=== PATIENT | male | born 1970 | race Caucasian/White ===

== ENCOUNTER → 2016-09-26 | Outpatient (CLI) | payer MEDICAID ==
[~2016-09-26] MED LIST: ALBUTEROL17 GM INH; ALDACTONE PO; ALLERGY RELIEF10 M6 PO; AMOXICILLIN875 MG PO; ANEXSIA 5/325 M1 TA1 PO; ASPIRIN PO; ASPIRIN81 MG PO; ATARAX PO; ATROVENT HFA12.9 G1 INH; AURALGAN AS; BACITRACIN15 GM OINT EXT; BACITRACIN15 GM TP; CHANTIX PO; CHANTIX0.5 MG PO; CLARITIN10 M3 PO; DOXYCYCLINE HY100 M3 PO; EFFIENT10 MG PO; FLEXERIL PO; FLEXERIL10 M1 PO; FUROSEMIDE40 MG PO; IBUPROFEN800 MG PO; INDOMETHACIN50 MG PO; K-DUR20 ME1 PO; KETOPROFEN PO; LEVAQUIN750 MG PO; LIPITOR40 MG PO; LIPITOR80 MG PO; LISINOPRIL PO; LOPRESSOR PO; METOPROLOL TAR25 MG PO; METOPROLOL/HCTZ PO; MEVACOR PO; NAPROXEN PO; NICOTINE TRANSD21 MG EXT; NO MEDICATIONS; PLAVIX PO; POTASSIUM CHLO10 MEQ PO; PREDNISONE PO; PRILOSEC PO; PRILOSEC20 M1; PRILOSEC20 MG PO; PRILOSEC40 MG PO; PRINIVIL5 MG PO; ROBAXIN 750750 M1 PO; TYLENOL #3 PO; VITAMIN B12 PO; VOLTAREN75 MG PO; ZANTAC PO; ZESTRIL10 M1 PO; ZESTRIL10 MG PO; ZITHROMAX PO; ZOCOR PO; ZOLOFT50 MG PO
--- NOTE | ~2016-09-26 | US37 ---
[facility] A Service of [facility] & [facility] RADIOLOGY TEXT RESULTS PATIENT: SYL ZARCO LOCATION: CNIV : 70 UNIT #: [id number] AGE: [address]: Amanda Zaman MD SEX: M ORDER DR: [id number] [facility] [address] [place], [place] [address] [id number] O MR#: [id number] Acc #: [id number] NAME: SYL ZARCO : 1970 SEX: M STUDY DATE/TIME: 09/26/2016 13:57 UNIT: CNIV ROOM: STUDY DESCRIPTION: US Carotid W/Doppler Bilateral Attending Physician: Amanda Zaman M.D. Referring Physician: Amanda Zaman M.D. Ordering Physician: Amanda Zaman M.D. [facility] REPORT This report is preliminary unless electronic signature is present DATE OF EXAM 09/26/2016 REASON FOR EXAM Carotid bruit. EXAM Bilateral carotid Doppler. FINDINGS The right common carotid, internal carotid and external carotid arteries are patent. There is minimal plaque noted in the carotid bulb extending to the proximal internal carotid artery. Velocity of the common carotid artery is 65 cm/sec. Peak systolic velocity of the right proximal internal carotid artery is 62 cm/sec with an end diastolic velocity of 26 cm/sec for an ICA:CCA ratio of 0.95. External carotid artery with a velocity of 167 cm/sec. The vertebral artery is visualized with antegrade flow. The left common carotid, internal carotid and external carotid arteries are patent with mild plaque noted in the carotid bulb extending to the proximal internal carotid artery. Velocity of the common carotid artery is 86 cm/sec. Peak systolic velocity of the left proximal internal carotid artery is 61 cm/sec with an end-diastolic velocity of 24 cm/sec for an ICA:CCA ratio of 0.71. External carotid artery with a velocity of 110 cm/sec. The vertebral artery is visualized with antegrade flow. IMPRESSION 1. Minimal plaque with less than 50% stenosis of the right and left internal carotid arteries. 2. Elevated velocities consistent with stenosis of the right external carotid artery, but no significant stenosis of the left external STS. [facility] A Service of [facility] & [facility] RADIOLOGY TEXT RESULTS PATIENT: SYL ZARCO LOCATION: [facility] #: [id number] : [birth year] UNIT #: [id number] AGE: [address]: Amanda Zaman MD SEX: M ORDER DR: carotid artery. 3. Antegrade flow of the vertebral arteries. Dictated by... Maico Jimenez M.D. THIS IS AN ELECTRONICALLY VERIFIED REPORT Maico Jimenez M.D. at 09/27/2016 10:42 PM JOSEMANUEL/ej TD: 09/26/2016 21:49 JOB #: [id number] MEDICAL IMAGING REPORT COPY
== END | disposition home or self-care (01) ==
LOC: CNIV 13:33
DX: R09.89 Other specified symptoms and signs involving the circulatory and respiratory systems (principal); I65.23 Occlusion and stenosis of bilateral carotid arteries
CPT/HCPCS: 93880

== ENCOUNTER 2016-10-10 20:34 | Emergency (ER) | payer MEDICAID ==
--- NOTE | ~2016-10-10 | CR63 ---
[facility] A Service of [facility] & [facility] RADIOLOGY TEXT RESULTS PATIENT: SYL ZARCO LOCATION: SED : 70 UNIT #: [id number] AGE: [address]: Clif Schwab SEX: M ORDER DR: [id number] [address] [address] [id number] E MR#: [id number] Acc #: [id number] NAME: SYL ZARCO : 1970 SEX: M STUDY DATE/TIME: 10/10/2016 20:47 UNIT: SED ROOM: STUDY DESCRIPTION: CR Chest 2 View Attending Physician: Clif Schwab P.A.-C. Ordering Physician: Clif Schwab P.A.-C. Primary Care Physician: [facility]. MEDICAL IMAGING REPORT This report is preliminary unless electronic signature is present. EXAM Two-view chest. HISTORY Cough for [id number]-[id number] weeks. Longstanding smoker. COMPARISON 01/07/2016 FINDINGS 2 views of the chest demonstrate mild pulmonary hyperinflation and hyperlucency suggesting emphysema. No acute airspace disease or consolidation. No infiltrates. No mass lesions. Heart, mediastinum, bony thorax unremarkable. IMPRESSION No active disease. Dictated by... Lee Flores M.D. THIS IS AN ELECTRONICALLY VERIFIED REPORT Lee Flores M.D. at 10/11/2016 2:09 PM SURI/lucia TD: 10/11/2016 10:55 JOB #: [id number] MEDICAL IMAGING REPORT
== END 2016-10-10 21:24 | disposition home or self-care (01) ==
LOC: SED 20:34
DX: J06.9 Acute upper respiratory infection, unspecified (principal); J44.9 Chronic obstructive pulmonary disease, unspecified; F17.210 Nicotine dependence, cigarettes, uncomplicated; Z88.0 Allergy status to penicillin; Z88.8 Allergy status to other drugs, medicaments and biological substances; Z79.899 Other long term (current) drug therapy
CPT/HCPCS: 71020; 99283